=== PATIENT | female | born 1965 | race Caucasian/White ===

== ENCOUNTER 2018-04-07 06:32 | Day surgery (SDC) | payer OTHER, MEDICARE ==
[~2018-04-07] VITALS: Ht 177.8 cm; Wt 86.0 kg
[~2018-04-07 06:32] MED LIST: ADAPALENE45 G1 TP; ADVIL200 MG PO; ASPIR 8181 M1 PO; BACTRIM,SEPT1 TABLE1 PO; BORTEZOMIB SQ; CELEBREX200 MG PO; CHERATUSSIN AC473 ML PO; CIPRO500 MG PO; CYANOCOBALAM1000 MCG PO; CYCLOBENZAPRINE10 MG PO; CYCLOPHOSPHAMID50 M2 PO; CYTOXAN50 MG PO; Chronulac,Cephulac,Enulose 20 gm/30 ml PO; DAILY VITAMIN1 EAC8 PO; DECADRON4 MG PO; DEXAMETHASONE; DOCUSATE SODIU100 MG PO; DOXYCYCLINE HY100 M3 PO; ENULOSE10 GM/15 M PO; FENTANYL1 EAC1 TD; FLEXERIL10 MG PO; FOLTX TABLET1 EAC1 PO; HYDROCODON-ACE1 EAC7 PO; HYDROMORPHONE HC4 MG PO; IRON325 M1 PO; LEVAQUIN750 MG PO; LEVOFLOXACIN500 MG PO; LEVOFLOXACIN750 MG PO; METAXALONE800 MG PO; MORPHINE SULFAT15 M1 PO; NAPROXEN500 MG PO; NORCO 5/3251 TABLET PO; ONE DAILY1 EAC3 PO; REVLIMID10 MG PO; REVLIMID15 MG PO; SERTRALINE HCL50 MG PO; TAMIFLU75 MG PO; TESSALON PERLE100 MG PO; TYLENOL EXTRA500 MG PO; VALACYCLOVIR500 MG PO; VALIUM5 MG PO; VALTREX1000 MG PO; VALTREX50 MG/ML PO; VELCADE1 MG/ML SC; VICODIN 5-3001 EACH PO; VITAMIN D5000 UNI1 PO; XARELTO20 MG PO; ZITHROMAX Z-PA250 MG PO; ZOFRAN4 MG PO; ZOLOFT50 MG PO
[2018-04-07] MEDS ORDERED: NORCO 5/3251 TABLET PO ×3 (08:27→08:36)
== END 2018-04-07 09:30 | disposition home or self-care (01) ==
LOC: CATH 06:32
DX: Z45.2 Encounter for adjustment and management of vascular access device (principal); C90.00 Multiple myeloma not having achieved remission; I87.8 Other specified disorders of veins; Z86.718 Personal history of other venous thrombosis and embolism; Z79.01 Long term (current) use of anticoagulants; Z88.0 Allergy status to penicillin
CPT/HCPCS: C1788; C1894; J0690; J1644; J2250; J3010; S0020